=== PATIENT | male | born 1995 | race African-American/Black ===

== ENCOUNTER 2019-08-26 21:35 | Emergency (ER) | payer OTHER ==
[2019-08-26] MEDS ORDERED: NA CHLORIDE 0.9% 1,000 ML IV ONE (21:36)
[2019-08-26] MEDS ORDERED: EPINEPHrine 1 MG/10 ML SYR IV ONE (21:36)
[2019-08-26] MEDS ORDERED: NOREPINEPHRINE 4mg/D5W 250mL 0 MG/0 ML BAG IV ONE (21:44)
[2019-08-26] MEDS ORDERED: NA CHLORIDE 0.9% 0 ML ONE (21:44)
--- NOTE | 2019-08-26 22:07 | ER ---
Nurse's Notes [facility] Name: Rick Bauer Age: 24 yrs Sex: Male : 1995 Arrival Date: 08/26/2019 Time: 21:43 Bed 2 Private MD: Diagnosis: Cardiac arrest, cause unspecified Presentation: 08/26 21:37 Presenting complaint: EMS states: HANG HIMSELF IN THE JAIL. UNRESPONSIVE AT THE rv SCENE, NOT BREATHING AND NO PULSE. CPR INITIATED. 5 ROUNDS OF EPINEPHRINE AND SHOCKED ONCE WITH 200 JOU[address] EN ROUTE TO ED. Care prior to arrival: Oral intubation, CPR via thumper performed by EMS was defibrillated and is still in progress Cervical collar in place. Placed on backboard. Medication(s) given: EPINEPHRINE X 5 DOSES IV initiated. 20 GA, in the left antecubital area, Oxygen administered. via AMBU bag. Compressions began prior to arrival. 21:37 Method Of Arrival: EMS: [facility] rv 21:37 Acuity: TOSIN 1 rv 22:08 Transition of care: patient was not received from another setting of care. Onset of rv symptoms was August 26, 2019 at 21:37. Risk Assessment: Do you want to hurt yourself or someone else? Other: UNRESPONSIVE. Initial Sepsis Screen: Does the patient meet any 2 criteria? Does the patient have a suspected source of infection?. Historical: - Allergies: 22:07 Unable to obtain; rv - Home Meds: 22:07 Unable to obtain [Active]; rv - PMHx: 22:07 Unable to obtain; rv - PSHx: 22:07 Unable to obtain; rv - Immunization history:: Adult Immunizations unknown. - Coronavirus screen:: UNRESPONSIVE. - Social history:: Smoking status: unknown. - Ebola Screening: : Unable to complete screening because patient is unresponsive. - Unable to obtain history due to: comatose state, unresponsive. Screenin:03 Abuse screen: UNRESPONSIVE. Nutritional screening: UNRESPONSIVE. Tuberculosis rv screening: UNRESPONSIVE. Fall Risk None identified. Assessment: 21:37 CPR assessment: unresponsive, pupils fixed \T\ dilated, no respiratory effort, intubated, rv Ambu ventilation. Cardiac rhythm is asystole. General: Appears WITH SCRATCHES NOTED ON THE RIGHT UPPER LEG. C-COLLAR IN PLACE, AND PATIENT IS ON BACKBOARD. INTUBATED WITH SIZE 8.0 LEVEL AT 27 AT TEETH C/O RESPIRATORY THERAPIST. WITH LEFT AC IV ACCESS OF G20, NS BOLUS RUNNING. ON GOING CPR WITH THUMPER IN PLACE BY EMS. SABINO MEJIA RN, NATHANIEL RN, OREN RN, DANIELA CASTREJON TECH, RT ON DUTY, ARE ON BEDSIDE UPON ARRIVAL OF PATIENT, INCLUDING MYSELF. JAIL GUARDS CAME WITH THE PATIENT.. Behavior is unresponsive. Pain: Unable to use pain scale. Patient is unresponsive. Neuro: Level of Consciousness is unresponsive. Cardiovascular: Rhythm is asystole. Respiratory: Airway via oral intubation. 21:37 EENT: Eyes ABSENCE OF PETECHIAE ON BOTH EYES. ABSENCE OF ANY REDNESS OR BRUISING ON THE rv NECK. 21:39 Reassessment: PULSE CHECK DONE AT 2138, WITH ROSC. BLOOD PRESSURE IS AT 63/36, PULSE AT rv 50s. PULSELESS AT 2145, PATIENT IS PRONOUNCED AT [address] TOBAR. 21:51 Derm: SCRATCHES ON THE RIGHT UPPER LEG. rv 22:05 Reassessment: POLICE CAME IN. rv 08/27 01:11 Reassessment: [facility] GUARDS ARE STILL IN THE ROOM. AWAITING FOR THE TO CONTRACT DESIGNER rv THE BODY. Vital Signs: 12 21:37 Temp 95.6(R); rv 21:39 BP 63 / 36; Pulse 50; rv 21:46 rv 21:37 UNRESPONSIVE AND PULSELESS rv 21:46 ASYSTOLE rv ED Course: 21:37 Arm band placed on left wrist. Patient placed in the treatment room, on a stretcher, on rv oxygen, on cardiac nurse specialist, on pulse oximetry. 21:37 Patient has correct armband on for positive identification. conveyor monitor on. Pulse rv ox on. NIBP on. 21:37 No provider procedures requiring assistance completed. Maintain EMS IV. Dressing rv intact. Good blood return noted. Site clean \T\ dry. Gauge \T\ site: G20 LEFT AC. 21:43 Patient arrived in ED. rn 21:44 Shane Tobar MD is Attending Physician. rn 21:47 Andres Hopson RN is Primary Nurse. rv 21:50 Triage completed. rv 22:06 Shane Tobar MD is Pronouncing Provider. rn 08/27 01:32 PATIENT . IV MAINTAINED WITH THE PATIENT. rv Administered Medications: 08/26 21:37 Drug: EPINEPHrine 0.1mg/mL 1:10,000 1 mg Route: IVP; Site: left antecubital; rv 21:39 Drug: Sodium Bicarbonate 1 amp Route: IVP; Site: left antecubital; rv Point of Care Testing: Blood Glucose: 21:40 Blood Glucose: 190 mg/dL; rv Ranges: Outcome: 21:47 Condition: rv 21:47 Patient : Time of 21:47 Pronounced by Shane Tobar MD rv 21:47 Outcome Patient rv 08/27 01:33 Patient : Body to home. rv 01:33 Patient left the ED. rv Signatures: Shane Tobar MD MD rn Vicente, Ronaldo, RN RN rv Corrections: (The following items were deleted from the chart) 08/26 21:59 21:48 Presenting complaint: EMS states: HANG HIMSELF IN THE JAIL. UNRESPONSIVE AT THE rv SCENE, NOT BREATHING AND NO PULSE. CPR INITIATED. 5 ROUNDS OF EPINEPHRINE AND SHOCKED ONCE WITH 200 JOULES EN ROUTE TO ED. rv 21:59 21:48 Care prior to arrival: Oral intubation, CPR via thumper performed by EMS was rv defibrillated and is still in progress Cervical collar in place. Placed on backboard. Medication(s) given: EPINEPHRINE X 5 DOSES IV initiated. 20 GA, in the left antecubital area, Oxygen administered. via AMBU bag rv 21:59 21:48 Compressions began prior to arrival. rv rv 21:59 21:48 Method Of Arrival: EMS: [facility] rv rv 21:59 21:48 Acuity: TOSIN 1 rv rv 22:02 21:50 Temp 95.6F Rectal; UNRESPONSIVE AND PULSELESS; rv rv 22:14 21:51 CPR assessment: unresponsive, pupils fixed \T\ dilated, no respiratory effort, rv intubated, Ambu ventilation, rv 22:14 21:51 Cardiac rhythm is asystole rv rv 22:14 21:51 General: Appears WITH SCRATCHES NOTED ON THE RIGHT UPPER LEG. C-COLLAR IN PLACE, rv AND PATIENT IS ON BACKBOARD. INTUBATED WITH SIZE 8.0 LEVEL AT 27 AT TEETH C/O RESPIRATORY THERAPIST. WITH LEFT AC IV ACCESS OF G20, NS BOLUS RUNNING. ON GOING CPR WITH THUMPER IN PLACE BY EMS. DR TOBAR,SABINO RN, NATHANIEL RN, OREN RN, DANIELA NUNES, RT ON DUTY, ARE ON BEDSIDE UPON ARRIVAL OF PATIENT, INCLUDING MYSELF. JAIL GUARDS CAME WITH THE PATIENT.. Behavior is unresponsive. rv 22: 21:51 Neuro: Level of Consciousness is unresponsive, rv rv 22: 21:51 Cardiovascular: Rhythm is asystole rv rv 22: 21:51 Respiratory: Airway via oral intubation rv rv 22: 21:59 Reassessment: PULSE CHECK DONE AT 2138, WITH ROSC. BLOOD PRESSURE IS AT 63/36, rv PULSE AT 50s. PULSELESS AT 2146, PATIENT IS PRONOUNCED AT [address] TOBAR. rv 22: 21:59 Pain: Unable to use pain scale. Patient is unresponsive. rv rv
--- NOTE | 2019-08-26 22:08 | EDPHYS ---
Physician Documentation [facility] Name: Rick Bauer Age: 24 yrs Sex: Male : 1995 Arrival Date: 08/26/2019 Time: 21:43 Bed 2 Private MD: ED Physician Shane Tobar HPI: 08/26 21:52 This 24 yrs old Black Male presents to ER via EMS with complaints of CPR, hanging. rn 21:52 Trauma demographics: Location of Injury: The injury occurred long-term. Mechanism of injury: rn hanging. Onset: The symptoms/episode began/occurred just prior to arrival. Unable to obtain HPI due to comatose state. It is unknown whether or not the patient has had similar symptoms in the past. Patient brought in by EMS, per report was found hanging in long-term cell. EMS states guards told them made rounds once and when came back around found him hanging, + CPR and had to cut him down, was found hanging. Asystole entire time except at early in ACLS when might have had vfib, shocked, asystole since then. EMS arrived approx 15 min after found, and arrived here approx 30-35 min into ACLS. Never regain of pulse. Not known if any other preceding events. . Historical: - Allergies: 22:07 Unable to obtain; rv - Home Meds: 22:07 Unable to obtain [Active]; rv - PMHx: 22:07 Unable to obtain; rv - PSHx: 22:07 Unable to obtain; rv - Immunization history:: Adult Immunizations unknown. - Coronavirus screen:: UNRESPONSIVE. - Social history:: Smoking status: unknown. - Ebola Screening: : Unable to complete screening because patient is unresponsive. - Unable to obtain history due to: comatose state, unresponsive. ROS: 21:52 Unable to obtain ROS due to comatose state. rn Exam: 21:52 Constitutional: Well developed male, unresponsive, GCS 3, intubated prior to arrival rn Head/Face: Normocephalic, atraumatic. Eyes: Pupils unresponsive, fixed and dilated, no subconjunctival hemorrhage Neck: No crepitus, no obvious swelling, no ligature griffith. Chest/axilla: No crepitus or deformity Cardiovascular: No spontaneous cardiac activity, pulseless Respiratory: Equal breath sounds with bagging, no spont breathing Abdomen/GI: soft, non-distended Back: No stepoffs, no traumatic findings Male : Normal genitalia with no discharge or lesions. Neuro: GCS 3 intubated. Vital Signs: 21:37 Temp 95.6(R); rv 21:39 BP 63 / 36; Pulse 50; rv 21:46 rv 21:37 UNRESPONSIVE AND PULSELESS rv 21:46 ASYSTOLE rv Procedures: 21:52 CPR: See CPR flow sheet. Initial patient assessment: unresponsive, pupils fixed \T\ rn dilated, Ambu ventilation, pulses present w/ compressions, The presenting cardiac rhythm is asystole. Compressions: began prior to arrival. despite ED evaluation and treatment, the patient . CPR was stopped at 21:47. Brief ROSC after Epinephrine, but when wore off within a couple of minutes, heart rate bradycardic and wide, then PEA. bedside ECHO performed, confirmed no contractility, code stopped and time of here at 2147.. MDM: 21:44 Patient medically screened. rn 21:52 Differential diagnosis: hanging, asphyxiation, by other causes unknown. Data rn reviewed: vital signs, nurses notes. Response to treatment: There is no appreciated change of the patient's symptoms at this time. Administered Medications: 21:37 Drug: EPINEPHrine 0.1mg/mL 1:10,000 1 mg Route: IVP; Site: left antecubital; rv 21:39 Drug: Sodium Bicarbonate 1 amp Route: IVP; Site: left antecubital; rv Point of Care Testing: Blood Glucose: 21:40 Blood Glucose: 190 mg/dL; rv Ranges: Critical Glucose Levels:Adult <50 mg/dl or >400 mg/dl <40 mg/dl or >180 mg/dl Disposition: 21:52 . rn Disposition: Patient pronounced on 08/26/19 21:47 by Shane Tobar. Impression: Cardiac arrest, cause unspecified. - Released to School Age Teacher. Signatures: Shane Tobar MD MD rn Vicente, Ronaldo, RN RN rv Corrections: (The following items were deleted from the chart) 08/27 01:33 0212 22:07 08/26/2019 22:07 Patient pronounced on 08/26/2019 at 21:47 by Shane Tobar. rv Impression: Cardiac arrest, cause unspecified. Released to School Age Teacher. rn
[2019-08-28 05:22] VITALS: TEMP 95.6
[2019-08-28 05:32] VITALS: BP 63/36
== END 2019-08-27 01:33 ==
LOC: ER 21:35
PROC: 5A12012 Performance of Cardiac Output, Single, Manual (ICD-10-PCS; principal; 2019-08-26)
DX: I46.9 Cardiac arrest, cause unspecified (principal); X83.8XXA Intentional self-harm by other specified means, initial encounter; Y93.9 Activity, unspecified; Y92.143 Cell of prison as the place of occurrence of the external cause
CPT/HCPCS: 82947; 92950; 96374; 96375; 99285; J0171; J7030